=== PATIENT | male | born 1955 | race Caucasian/White ===

== ENCOUNTER → 2017-05-18 14:29 | Emergency (ER) | payer BC ==
[~2017-05-18 14:29] MED LIST: Ibuprofen TAB* 800 MG PO ONE
[2017-05-18 14:41] VITALS: BP 149/74
--- NOTE | 2017-05-18 15:53 | RAD ---
INDICATION: Right shoulder injury. TECHNIQUE: 4 views of the right shoulder were obtained. FINDINGS: The bones are in normal alignment. No fracture is seen. There is moderate osteoarthritic change in the acromioclavicular joint. IMPRESSION: NO EVIDENCE OF FRACTURE.
--- NOTE | 2017-05-18 17:05 | ED ---
Adult Trauma - HPI Summary HPI Summary: Pt here w/ fall while working on his roof. Was walking with the downward slope when he slipped and fell backward, catching himself with his hands while arms were outstretched. Has Rt shoulder pain now and pain w/ flexion/abduction. No numbness, tingling, weakness. Moving fingers, wrist and elbow well. He also reports striking hand Lt hand on roof - palm caught a screw and ripped skin here - bleeding controlled w/ pressure. Denies numbness, tingling, weakness here. No anticoags. Imms UTD. No other injuries to report. - History of Current Complaint Chief Complaint: EDShoulderCkellyleInj Stated Complaint: FALL SHOULDER INJURY Time Seen by Provider: 05/18/17 14:55 Hx Obtained From: Patient Pain Intensity: 3 - Allergy/Home Medications Allergies/Adverse Reactions: Allergies Allergy/AdvReac Type Severity Reaction Status Date / Time No Known Allergies Allergy Verified 03/07/13 07:50 PMH/Surg Hx/FS Hx/Imm Hx Previously Healthy: Yes Endocrine/Hematology History: Reports: Hx Diabetes - borderline Denies: Hx Anticoagulant Therapy, Hx Blood Disorders Cardiovascular History: Reports: Hx Hypertension Musculoskeletal History: Reports: Other Musculoskeletal History - bilateral knee and hip pain Sensory History: Reports: Hx Contacts or Glasses, Hx Hearing Problem - "Left ear is not at 100%" Denies: Hx Hearing Aid Opthamlomology History: Reports: Hx Contacts or Glasses - Surgical History Hx Anesthesia Reactions: No - unknown - Immunization History Immunizations Up to Date: Yes Infectious Disease History: No Infectious Disease History: Denies: Hx of Known/Suspected MRSA, Traveled Outside the [place] in Last 30 Days - Family History Known Family History: Positive: None - Social History Occupation: Employed Full-time - elementary school professional, Employed Part-time Lives: With Family Alcohol Use: Occasionally Hx Substance Use: No Substance Use Type: Reports: None Hx Tobacco Use: No Smoking Status (MU): Never Smoked Tobacco Review of Systems Constitutional: Negative Negative: Fever, Chills, Fatigue Eyes: Negative Negative: Photophobia, Blurred Vision, Diplopia ENT: Negative Negative: Dental Pain Cardiovascular: Negative Negative: Chest Pain Respiratory: Negative Negative: Shortness Of Breath Gastrointestinal: Negative Negative: Abdominal Pain, Vomiting, Nausea Positive: no symptoms reported. Negative: incontinence Musculoskeletal: Other - see HPI Skin: Other - see HPI Neurological: Negative Negative: Headache, Weakness, Paresthesia, Numbness, Syncope, Slurred Speech Psychological: Other - was shaken up immediately after - more calm now All Other Systems Reviewed And Are Negative: Yes Physical Exam Triage Information Reviewed: Yes Vital Signs On Initial Exam: Initial Vitals Temp Pulse Resp BP Pulse Ox 97.2 F 76 20 177/89 100 05/18/17 14:31 05/18/17 14:31 05/18/17 14:05/18/17 14:05/18/17 14:31 Vital Signs Reviewed: Yes Appearance: Positive: Well-Appearing, No Pain Distress - at rest - worse w/ movement, Well-Nourished Skin: Positive: Warm - jagged laceration over Lt thenar eminence - bleeding controlled Head/Face: Positive: Normal Head/Face Inspection Eyes: Positive: Normal, EOMI, DOMINIK, Conjunctiva Clear ENT: Positive: Hearing grossly normal Dental: Negative: Dental Fracture @ Neck: Positive: Supple, Nontender Respiratory/Lung Sounds: Positive: Breath Sounds Present Cardiovascular: Positive: Pulses are Symmetrical in both Upper and Lower Extremities Musculoskeletal: Positive: Strength/ROM Intact - elbow, wrist finger B/L and LE' s, Limited @ - Rt shoulder flexion and abduction - painful - no gross deformity Neurological: Positive: Normal, Sensory/Motor Intact, Alert, Oriented to Person Place, Time, CN Intact II-III Psychiatric: Positive: Normal Procedures - Splinting Location: Rt UE Pre-Made Type: sling Splint: cloth sling Pre-Proc Neuro Vasc Exam: normal Post-Proc Neuro Vasc Exam: normal - Laceration/Wound Repair 1 Location: upper extremity - Lt thenar eminance Description: Irregular - jagged Anesthesia: Local, 1.0%, Lido Length, Depth and Shape: 2cm x 3mm Betadine Prep?: Yes Irrigated w/ Saline (ccs): 250 - hibaclens + sterile water solution Laceration/Wound Explored: clean Closure: Single Layer Suture Type: Nylon - 5-0 Number of Sutures: 6 Layer Closure?: No Sterile Dressing Applied?: Yes - triple anbx ointment + sterile gauze + ANDRZEJ wrap Diagnostics - Vital Signs Vital Signs Temp Pulse Resp BP Pulse Ox 05/18/17 14:37 97.9 F 70 14 149/74 99 05/18/17 14:31 97.2 F 76 20 177/89 100 - Laboratory Lab Statement: Any lab studies that have been ordered have been reviewed, and results considered in the medical decision making process. Re-Evaluation - Re-Evaluation First Eval Change: Improved Adult Trauma Course/Dx - Diagnoses Provider Diagnoses: Sprain of right shoulder, Laceration of left hand, Fall from standing Discharge - Discharge Plan Condition: Stable Disposition: HOME Patient Education Materials: Shoulder Sprain (ED), Laceration (ED), Care For Your Stitches (ED) Referrals: Minnie Rowe MD [Primary Care Provider] - Additional Instructions: Rest, ice, elevate both shoulder and hand for pain/swelling For shoulder, keep in sling most of the time but take out 3 x day to stretch - see education included Follow-up with PCP for further evaluation next week For wound, keep dressing in place for 48 hours. After this time, you may remove - gently wash with soap and water - rinse well and pat dry with clean cloth then reapply triple antibiotic ointment and redress with clean gauze and ANDRZEJ wrap. Avoid gripping, lifting, carrying items, etc with this hand to prevent rupturing sutures. Follow-up with PCP in 10-14 days for recheck of wound and suture removal. Call Saturday to schedule appointment. *If you develop redness, swelling, purulent drainage, streaking, fever, chills, seek medical attention sooner.
== END | disposition home or self-care (01) ==
LOC: ED 14:29
DX: S43.401A Unspecified sprain of right shoulder joint, initial encounter (principal); S61.412A Laceration without foreign body of left hand, initial encounter; W19.XXXA Unspecified fall, initial encounter; Y93.89 Activity, other specified; Y92.9 Unspecified place or not applicable; Y99.9 Unspecified external cause status
CPT/HCPCS: 12001; 99282; A9270-GY